=== PATIENT | male | born 1975 | race Caucasian/White ===

== ENCOUNTER 2018-09-29 07:00 | Outpatient (CLI) | payer BC, SELFPAY ==
--- NOTE | 2018-09-29 08:53 | DI.CT_ITS ---
SYMPTOM/DIAGNOSIS: FACIAL PAIN, R51 SINUS CT: The noncontrast enhanced examination was carried out according to the usual protocol and reveals mild mucoperiosteal thickening in the left maxillary antrum with minimal inflammatory changes in the right maxillary antrum. The ethmoid, frontal and sphenoid sinuses appear clear. The nasal cavity is intact. SUMMARY: Mild inflammatory changes involving the maxillary antra are demonstrated. The paranasal sinuses are otherwise unremarkable.
== END 2018-09-29 07:20 ==
PROVIDERS: PCP Registered Nurse; Visit Provider Otolaryngology
DX: R51 Headache (principal); J32.0 Chronic maxillary sinusitis
CPT/HCPCS: 70486

== ENCOUNTER 2021-10-23 20:53 | Outpatient (REF) | payer BC, SELFPAY ==
[2021-10-25 10:29] LABS: COVID-19 RT-PCR UVMMC Result Negative (Negative)
== END 2021-10-23 20:54 | disposition home or self-care (01) ==
LOC: LBN 20:53
PROVIDERS: PCP Registered Nurse; Visit Provider Physician Assistant
DX: Z20.822 Contact with and (suspected) exposure to COVID-19 (principal)
CPT/HCPCS: U0003